=== PATIENT | male | born 1960 | race Caucasian/White ===

== ENCOUNTER 2016-11-09 11:30 | Inpatient (IN) ==
[2016-11-09] MEDS ORDERED: DILAUDID IM ONE (12:19)
[2016-11-09] MEDS ORDERED: PHENERGAN IM ONE (12:20)
--- NOTE | 2016-11-09 13:20 | Diag Imaging Result Document ---
PROCEDURE NAME: CHEST-2 VIEWS - 11/09/2016 FRONTAL AND LATERAL CHEST, 2 VIEWS: FINDINGS: There is a small to moderate sized right-sided hydropneumothorax. No lung contusion. The mediastinum is not widened. The left lung is clear. The heart is not enlarged. IMPRESSION: Small to moderate sized right-sided hydropneumothorax. Dr. Hirsch was called in the emergency room at 1:05 p.m.
--- NOTE | 2016-11-09 13:20 | Diag Imaging Result Document ---
PROCEDURE NAME: RIBS ONLY RIGHT - 11/09/2016 RIGHT RIB DETAIL, FOUR VIEWS: COMPARISON: Comparison is made to the recent chest x-ray. FINDINGS: There is a right-sided hydropneumothorax. This is [id number] in size. No displaced fracture. No lung contusion. The mediastinum is not widened. IMPRESSION: Right-sided hydropneumothorax. Dr. Hirsch was called in the Emergency Room at 1:05 p.m..
--- NOTE | 2016-11-09 14:17 | Diag Imaging Result Document ---
PROCEDURE NAME: CT THORAX W/O CONTRAST - 11/09/2016 CT THORAX WITHOUT CONTRAST: A CT dose reduction protocol was used. COMPARISON: CT thoracic spine 11/07/2016. FINDINGS: There is a right posterior lateral 6th rib fracture that is nondisplaced, apparently stable from the thoracic spine CT. There is enlargement of the right-sided pneumothorax, this now measures about 40%. There is fluid opacification of all of the right lower lobe airways and collapse of this lobe. The interim lobar bronchus is also opacified, with partial opacification of the right middle lobe airways. The right middle and lower lobes are completely collapsed. There is a small right pleural effusion which may be a hemothorax. IMPRESSION: 1. Right pneumothorax of about 40%. 2. Small right hemothorax. 3. Opacification of all the lower and middle lobe bronchi on the right with complete collapse of these lobes. [facility]
--- NOTE | 2016-11-09 15:22 | PROVIDER DOCUMENTATION ---
This chart was entered by Saman Campos Scribe, acting as scribe for Katiana Hirsch MD. HPI-General Adult - General Chief Complaint: Chest Pain Stated Complaint: FRACTURED RIBS Time Seen by Provider: 11/09/16 12:09 Source: patient Allergies/Adverse Reactions: Patient Allergies Allergy/AdvReac Type Severity Reaction Status Date / Time promethazine HCl * Allergy NAUSEA Verified 11/09/16 13:08 [From Phenergan] tetracycline Allergy Unknown Verified 11/09/16 13:08 Home Medications: Home Medication List Medication Instructions Recorded Confirmed Last Taken Type NK [No Home Medications] 11/09/16 11/09/16 Unknown History - History of Present Illness -Gen Adult Nature of Presenting Problems: pt is 56 y/o M that presents to the ER with right side pain due to right rib fx 's and possible worsening pneumothorax. Patient was [place] [facility] [place] has pain meds but wants to make sure he doesn't have a worsening pneumothorax . Location of Pain/Injury: reports: chest (right ribs) Pain Radiation: reports: no radiation Quality of Pain: reports: sharp Severity: reports: moderate Onset/Duration: reports: abrupt, 3 days ago Timing: reports: still present, constant Context/Activities at Onset: reports: recent trauma history Modifying Factors: worse with: breathing, movement, palpation Associated Symptoms: reports: chest pain, shortness of breath, pain with inspiration. denies: diarrhea, fever/chills, genitourinary problems, sinus congestion/drainage, nausea, vomiting Similar Symptoms Previously?: Yes Recently seen or treated by another doctor?: Yes Review of Systems - Adult - REVIEW OF SYSTEMS - ADULT Constitutional: denies: chills, fever Eyes: reports: no symptoms reported Ears, Nose, Mouth & Throat: reports: no symptoms reported Cardiovascular: reports: chest pain. denies: palpitations, syncope Respiratory: reports: pleurisy, shortness of breath. denies: cough, wheezing Gastrointestinal: reports: no symptoms reported Genitourinary: reports: no symptoms reported Musculoskeletal: reports: no symptoms reported Integumentary: reports: no symptoms reported Neurological: reports: no symptoms reported Psychiatric: reports: no symptoms reported Endocrine: reports: no symptoms reported Hematologic/Lymphatic: reports: no symptoms reported Allergic/Immunologic: reports: no symptoms reported All Other Systems: Reviewed and Negative Past History - Adult - PAST MEDICAL HISTORY-ADULT Review of Records: reports: Old Records Reviewed, Nursing Assessment Review, Medications Reviewed Respiratory: reports: COPD - IMMUNIZATION STATUS Childhood Immunizations: See Nurse Assessment Flu Vaccine: See Nurse Assessment - FAMILY HISTORY Family History: reviewed, not pertinent - SOCIAL HISTORY Smoking: cigarettes, less than 1 pack/day Living Situation: family Physical Exam-General - PHYSICAL EXAM-ADULT Initial Vital Signs Reviewed: Yes - CONSTITUTIONAL General Appearance: alert, no apparent distress - EYES Eyes: PERRL/EOMI, pink conjunctivae - HEAD, EARS, NOSE, MOUTH & THROAT HENMT: normocephalic/atraumatic, moist mucous membranes, normal ENT inspection - NECK Neck: full range of motion, normal inspection - RESPIRATORY Respiratory: lungs clear, normal breath sounds, no respiratory distress, no accessory muscle use, pain on inspiration - CARDIOVASCULAR Cardiovascular: regular rate, rhythm, no edema, no murmur - GASTROINTESTINAL (ABDOMEN) Abdominal Exam: normal bowel sounds, non tender, soft - MUSCULOSKELETAL Extremity: normal range of motion, normal inspection, no pedal edema - SKIN Integumentary: normal color, warm/dry - NEUROLOGIC Neurologic: grossly normal, no motor/sensory deficits - PSYCHIATRIC Psych/Mental Status: normal mood/affect, normal thought content, normal thought process, oriented x 3 Progress - PLAN OF CARE/RESULTS Progress/Plan/Lab Results: Vital Signs - 8 hr 11/09/16 11:57 Temperature 98 F Pulse Rate 70 Respiratory Rate 14 Blood Pressure 124/88 O2 Sat by Pulse Oximetry 100 Orders Category Date Time Status RIBS UNILAT W/PA CHEST RIGHT [RAD] Stat Exams 11/09/16 12:16 Ordered cxr [CHEST-2 VIEWS] [RAD] Stat Exams 11/09/16 12:16 Ordered Hydromorphone [Dilaudid] Med 11/09/16 12:19 Discontinued 2 mg IM NOW ONE Promethazine [Phenergan] Med 11/09/16 12:20 Discontinued 12.5 mg IM NOW ONE - XRAY 1 XRAY Study: Chest, Ribs Impression: Abnormal XRAY Interpretation: 25 to 30% pneumothorax - CT/MRI 1 CT Study: Thorax Impression: Abnormal CT Results: R 6th Rib Fx, 40% R Pneumo plugging RML and RLL bronchi collapsed - CONSULTS/PCP/HOSPITALIST Notification #1 *Consult/PCP/Hospitalist*: Dr.T Leong Time Discussed: 13:12 Reason/Comments: CT scan chest non-contrast Consult Disposition: Will see in ED #2 Consult: Dr.T Leong Time Discussed: 14:40 Reason/Comments: will place chest tube in ER Consult Disposition: Will see in ED, Admit Departure - Departure Time of Disposition Decision: 14:41 DIAGNOSIS: Pneumothorax, right Rib fracture Qualifiers: Encounter type: initial encounter Rib fracture type: single rib Fracture type: closed Laterality: right Qualified Code(s): S22.31XA - Fracture of one rib, right side, initial encounter for closed fracture Disposition: ADMITTED INPATIENT 09 Certified Medical Emergency: Emergent Condition: Stable Referrals and Follow-Ups: None,PCP [Primary Care Provider] - This chart was documented by the indicated scribe, (Saman Campos, Scribe) and accurately reflects the services I performed and decisions made by me, Katiana Hirsch MD, as attested by the provider's signature.
[2016-11-09] MEDS ORDERED: XYLOCAINE 1%/EPI 1:100,000 ONE (16:43)
[2016-11-09] MEDS ORDERED: DILAUDID IV ONE (17:28)
[2016-11-09] MEDS ORDERED: ZOFRAN IV PRN (17:33)
[2016-11-09] MEDS ORDERED: NS 1,000 ML IV ONE (17:33)
[2016-11-09] MEDS ORDERED: TYLENOL PO PRN (17:33)
[2016-11-09] MEDS ORDERED: DILAUDID IV PRN (17:33)
[2016-11-09] MEDS: DILAUDID IV PRN (23:42)
[2016-11-09] MEDS: NICODERM PATCH TD SCH ×2 (23:51→23:55)
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
[2016-11-10] MEDS: DILAUDID IV PRN ×4 (04:18→20:30)
--- NOTE | 2016-11-10 04:19 | OPERATIVE NOTE ---
PROCEDURE DATE: 11/09/2016 PREOPERATIVE DIAGNOSIS: Right pneumothorax. POSTOPERATIVE DIAGNOSIS: Right pneumothorax. PROCEDURES PERFORMED: Right-sided tube thoracostomy with a 32-[place] chest tube. ESTIMATED BLOOD LOSS: Less than 5 mL. SPECIMENS: None. COMPLICATIONS: None. ANESTHESIA: Local. INDICATION: A 56-year-old male with a symptomatic right pneumothorax after a fall several days ago. He has COPD. OPERATIVE FINDINGS: There is a parrish of air upon entering the chest cavity but no significant pleural adhesions. OPERATIVE NOTE: Risks, benefits, alternatives discussed with the patient. He consented to the procedure and surgery being performed was confirmed. Surgical site was marked. Time-out was performed between nursing and surgery staff. Sterile gloves and gown for this procedure as well. Right chest was prepped with chlorhexidine solution and draped with sterile towels. His right arm was secured with silk tape above his head. At approximately the 6th intercostal space, we infiltrated local anesthetic to level of the rib, accessed the pleural cavity and aspirated air and infiltration of the pleura. Made an incision transversely below the level of the riband dissected cephalad over the top of the rib bluntly, entering the chest cavity in a controlled fashion. Swept away with my finger to make sure there were no adhesions After confirming there were no intra-thoracic adhesions, a 32-[place] chest tube was placed posterior and apically and secured to a Pleur-Evac device. Secured this with 0 silk sutures in 1/2-hitch fashion. A sterile dressing was applied. Placed a suction. Some serosanguineous fluid was expressed. There was no air leak noted. It was placed to -20 suction. Chest x -ray was pending. He tolerated the procedure well. There were no identified complications. cc: Erika Leong MD [facility]
--- NOTE | 2016-11-10 05:10 | HISTORY AND PHYSICAL ---
CHIEF COMPLAINT: Shortness of breath. HISTORY OF PRESENTING ILLNESS: This is a 56-year-old male with a history of COPD, hepatitis C, liver cancer, who apparently fell on a pallet on Wednesday or so and at that time, he went to [facility] where he was diagnosed with rib fracture and sent home. He states that when he went home, he started developing more shortness of breath and more pain and subsequently had returned to [facility], where he had imaging done which did show that he had a right pneumothorax. Subsequently, General Surgery was called. A chest tube was placed and patient will need hospitalization for further management. At the time of my examination, he had denied any headache, visual changes, fevers, chills, hemoptysis, melena, weight changes. States he feels a little bit better. PAST MEDICAL HISTORY: Includes COPD/emphysema, liver cancer, hepatitis C. PAST SURGICAL HISTORY: Appendectomy, liver tumor removal. ALLERGIES: Tetracycline and Phenergan. CURRENT MEDICATIONS: As listed in the MAR. SOCIAL HISTORY: Fifty pack years history of smoking. Denies history of alcohol use. History of marijuana use that he states he has a prescription for. He has a history of IV drug use including IV heroin, methamphetamines and cocaine. FAMILY HISTORY: Positive for coronary disease in mother. REVIEW OF SYSTEMS: Twelve point review of systems is as in HPI. Other systems negative. PHYSICAL EXAMINATION: GENERAL: Cooperative, friendly male. He is resting comfortably now. VITAL SIGNS: Temperature 98.2 degrees, pulse 66, respirations 20, blood pressure 159/75. HEENT: Atraumatic, normocephalic. Extraocular movements intact. PERRLA. NECK: Supple. CHEST: There is a chest tube in place. CARDIOVASCULAR: Regular rate and rhythm. ABDOMEN: Soft. Positive bowel sounds. EXTREMITIES: No edema. NEURO: He is awake, alert, oriented x3. : No bladder distention. SKIN: Warm. LABORATORIES AND STUDIES: All pending. ASSESSMENT: A 56-year-old male with a history of chronic obstructive pulmonary disease, apparently had fell on a pallet 2 days ago. He had a rib fracture and then subsequently began to become more dyspneic. He was evaluated in the emergency room at [facility] where he was found to have a pneumothorax. Chest tube was placed and he will need hospitalization for further management. 1. Right pneumothorax. 2. Chronic obstructive pulmonary disease. 3. Right 6th rib fracture. 4. Ongoing tobacco abuse. PLAN: 1. The patient will be admitted to the medical floor with telemetry. 2. General Surgery following and managing chest tube. 3. We will give patient adequate pain control and his DuoNebs p.r.n. 4. Counseled patient extensively on smoking cessation and put a nicotine patch on patient. 5. Put patient on DVT prophylaxis with SCD. 6. We will continue to follow and reassess. cc: Konstantin Garcia MD
[2016-11-10 06:08] LABS: MANUAL DIFF NEEDED? NO
[2016-11-10 06:12] LABS: BASO% 0.1 % (0.0-0.8); EOS# 0.11 X1000 (0.0-0.7); EOS% 1.1 % (0.0-10.0); HEMATOCRIT 38.3 % (42.0-52.0); HEMOGLOBIN 12.9 g/dL (14.0-18.0); IMM GRAN# 0.02 X1000 (0.0-0.04); IMM GRAN% 0.2 % (0.0-0.5); LYMPH# 0.91 X1000 (1.2-3.4); LYMPH% 9.5 % (20.5-51.1); MCH 30.6 PG (27-31); MCHC 33.7 g/dL (33-37); MCV 90.8 FL (81-99); MONO# 0.96 X1000 (0.11-0.59); MPV 10.4 FL (7.4-10.4); NEUT% 79.1 % (42.2-75.2); PLT 236 X1000 (130-400); RBC 4.22 XMIL (4.7-6.1)
[2016-11-10 06:29] LABS: AGAP 13; BUN 12 mg/dL (8-22); CALCIUM 8.5 mg/dL (8.8-10.2); CHLORIDE 99 mmol/L (98-107); COSMO 272; POTASSIUM 4.1 mmol/L (3.5-5.1); SODIUM 136 mmol/L (136-145); TCO2 24 mmol/L (25-35)
--- NOTE | 2016-11-10 08:12 | Diag Imaging Result Document ---
PROCEDURE NAME: CHEST-PORTABLE - 11/10/2016 PORTABLE CHEST X-RAY: COMPARISON: 11/09/2016. FINDINGS: Stable right chest tube. Stable trace right apical pneumothorax. Stable infiltrate versus collapse at the right lung base. IMPRESSION: No complication or change from prior.
--- NOTE | 2016-11-10 08:13 | Diag Imaging Result Document ---
PROCEDURE NAME: CHEST-PORTABLE - 11/09/2016 PORTABLE CHEST X-RAY AT 1835 HOURS: COMPARISON: 1228 hours. FINDINGS: There has been placement of a right-sided chest tube in good position. There is near- complete resolution of the right pneumothorax with a tiny trace residual apical pneumothorax. There has been some improvement in the collapse at the right lung base as well. IMPRESSION: Significant improvement from prior. No complication.
--- NOTE | 2016-11-10 12:46 | PROGRESS NOTE ---
DATE: 11/10/2016 SUBJECTIVE: Feels well. Some pain at the tube site. Productive cough. Not dissimilar from baseline. OBJECTIVE: Afebrile overnight. No tachycardia. Pulse 75, blood pressure 122/77, oxygen saturation 92% on room air. General: He is alert in no acute distress. Cardiovascular: Normal rate. Regular rhythm. Pulmonary: No increased work of breathing. Equal chest rise. Right chest tube with less than 200 mL of serosanguineous drainage. No air leak. He is to -20 suction. Chest tube dressing with minimal drainage on this. I reviewed his labs. White count is normal at 9, hematocrit 38, creatinine 0.8, glucose is normal at 95. Chest x-ray shows good expansion of the right lung. Questionable apical pneumothorax, but I suspect this is more bleb noted on CT scan and some atelectasis but no real effusion. ASSESSMENT AND PLAN: A 56-year-old male with a traumatic right pneumothorax, status post chest tube placement. Lungs well expanded on x-ray today with no air leak. We have water sealed his tube. Repeat chest x-ray this afternoon and a chest x-ray in the morning for plan for possible removal. I appreciate the hospitalist's help with this gentleman. He has never really been followed by a medicine doctor and has multiple chronic issues that are not being managed. They are also making arrangements for him as an outpatient. I discussed the importance of pulmonary toileting, ambulating, and pain control. We will work on this today. cc: Erika Leong MD
--- NOTE | 2016-11-10 15:38 | Diag Imaging Result Document ---
PROCEDURE NAME: CHEST-PORTABLE - 11/10/2016 SINGLE FRONTAL RADIOGRAPH OF THE CHEST: COMPARISON: 11/10/2016. FINDINGS: Right chest tube is in stable position. There is a stable tiny pneumothorax at the right lung apex. Infiltrate versus atelectasis at the right lung base is stable. No new consolidation identified. Cardiac silhouette is stable. IMPRESSION: Stable chest.
--- NOTE | 2016-11-10 16:58 | PROGRESS NOTE ---
DATE: 11/10/2016 SUBJECTIVE: Today Mr. Baig referred to be doing a little better. He just came from follow-up chest x-ray this afternoon. OBJECTIVE: Vital signs: Blood pressure is 152/78, pulse of 87, respiration is 20, temperature is 99.2 degrees. General: Mr. Baig is a 56-year-old, male. He was in bed. He did not seem to be in any distress. HEENT: Mucosa is pink and moist. Anicteric. Acyanotic. Neck: Supple. Chest: Good air entry bilateral. A few bibasilar crepitations. There is a chest tube in the right lateral chest wall. Cardiovascular: Regular rate and rhythm. There are no murmurs, no rubs, no gallop. Abdomen: Soft. Extremities: No pedal edema. LABORATORY DATA: WBC is 9.57, hemoglobin is 12.7, platelet count is 236,000. Chemistries reviewed, completely unremarkable except for calcium which is 8.2. IMAGING: A chest x-ray this afternoon shows tiny stable pneumothorax on the right, infiltrate versus atelectasis at the right lung base, stable. ASSESSMENT: 1. Right traumatic hydropneumothorax status post right chest tube placement. The patient is doing fine, being followed up by General Surgery. 2. Chronic obstructive pulmonary disease. Stable. 3. Tobacco abuse. Patient has been counseled. 4. Right 6th rib fracture. 5. Strep hepatitis C. cc: Ricki Linn MD
[2016-11-11] MEDS: DILAUDID IV PRN ×5 (02:03→21:45)
[2016-11-11] MEDS: NICODERM PATCH TD SCH (09:57)
--- NOTE | 2016-11-11 14:31 | Diag Imaging Result Document ---
PROCEDURE NAME: CHEST-PORTABLE - 11/11/2016 PORTABLE UPRIGHT CHEST: COMPARISON: Compared to 11/10/2016. FINDINGS: There is persistence of the right lower lobe infiltrate. No interval improvement. In fact, it may be slightly more pronounced. Development of atelectasis versus a small infiltrate in the left base. Heart is not enlarged. The vessels are not distended. There is a right-sided chest tube. No pneumothorax identified. IMPRESSION: No interval improvement.
--- NOTE | 2016-11-11 15:55 | PROGRESS NOTE ---
DATE: 11/11/2016 SUBJECTIVE: Today Mr. Baig referred to be doing fine. He continues to have a chest tube in place. According to him, when he is taking deep breaths he gets this chest pain lodging in the center of his chest, then it would immediately go away. OBJECTIVE: Vitals: Blood pressure is 119/75, pulse is 90, respiration is 18, temperature is 98.6 degrees. General Exam: Mr. Baig is a 56-year-old male. He was in bed. He did not seem to be in any distress. HEENT: Mucosa is pink and moist. Anicteric. Acyanotic. Neck: Supple. Chest: Air entry is bilaterally reduced. A few bibasilar crepitations. There is a chest tube in the right lateral chest wall. Cardiovascular: Regular rate and rhythm. No murmurs, no rubs. No gallops. Abdomen: Soft, nontender. Extremities: No pedal edema. LABORATORY DATA: None for today. DIAGNOSTIC DATA: A chest x-ray this morning did show no interval improvement. There might be some slight worsening of the right lower lobe infiltrate. ASSESSMENT: 1. Traumatic right hydro pneumothorax status post right chest tube placement. The pneumothorax seems to have resolved but there is persistent infiltrate in the right lower base which I think is part of the hydrothorax. Will be pending Surgery evaluation today as to when the tube can be safely removed. 2. Chronic obstructive pulmonary disease, not in exacerbation. 3. Tobacco abuse. 4. Right 6th rib fracture. 5. Hepatitis C. So in general, I think Mr. Baig is doing relatively stable. We will continue with the pain management, also incentive spirometer, and will be pending further recommendations from Surgery. We did discuss about Mr. Baig at [facility] today. There is the plan to get him physicians who would be willing to take him to follow up with his other comorbidities once he gets discharged from the hospital. cc: MD YARON oHllis
--- NOTE | 2016-11-11 16:29 | PROGRESS NOTE ---
DATE: 11/11/2016 SUBJECTIVE: Pain at the insertion site of his tube. Productive cough but no shortness of breath. OBJECTIVE: Afebrile. Temperature is 98.6 degrees, pulse is 90, blood pressure 119/75, oxygen saturation 97% on room air.General: He is alert, in no acute distress. HEENT: There is some temporal wasting. Cardiovascular: Normal rate, regular rhythm. Pulmonary: He is on room air with no increased work of breathing. His right chest tube site has some serosanguineous drainage around the tube but it is otherwise without erythema. His chest tube is to water seal without an air leak and some serosanguineous drainage but only a moderate amount. Labs reviewed. Nothing new this morning. Chest x-ray reviewed. After water seal yesterday there is no residual pneumothorax. There is some atelectasis right lower lobe. This morning's x-ray shows again no reaccumulation of pneumothorax. ASSESSMENT/PLAN: 56-year-old male with traumatic right pneumothorax status post chest tube placed and he had rapid re-expansion of his lung with no residual air leak or pneumothorax noted on his x- ray and exam today. We will remove his tube and check a chest x-ray following. I removed the tube and placed an occlusive dressing which needs to stay for 72 hours given his thin stature and lack of subcutaneous tissue. Discussed with the patient if his x-ray looks okay this evening, it will be okay for him to go home in the morning. Appreciate the hospitalist's help with this patient. cc: Erika Leong MD
[2016-11-12] MEDS: DILAUDID IV PRN ×2 (03:49→08:33)
[2016-11-12 07:40] VITALS: BP 117/79
--- NOTE | 2016-11-12 09:02 | Diag Imaging Result Document ---
PROCEDURE NAME: CHEST-1 VIEW - 11/12/2016 PORTABLE CHEST: Compared with 11/11/2016. FINDINGS: Heart size is normal. There has been interval decrease in infiltrate at the right base. There is mild residual infiltrate at the right base. The remainder of the lungs appear clear. There is no pleural effusion identified. There is a questionable tiny pneumothorax at the superior lateral right chest. IMPRESSION: 1. Interval decrease in right basilar infiltrate. 2. Questionable tiny pneumothorax at the superior lateral right chest.
--- NOTE | 2016-11-12 09:43 | Diag Imaging Result Document ---
PROCEDURE NAME: CHEST-PORTABLE - 11/11/2016 SINGLE FRONTAL RADIOGRAPH OF THE CHEST: COMPARISON: 11/11/2016. FINDINGS: The infiltrate at the right lung base is essentially unchanged. The very mild opacity at the left lung base that more than likely represents mild atelectasis is also unchanged. No new consolidation is identified. Cardiac silhouette is stable. IMPRESSION: Stable chest.
--- NOTE | 2016-11-12 11:49 | PROGRESS NOTE ---
DATE: 11/12/2016 SUBJECTIVE: Feels well. Pain in his right chest has resolved. No shortness of breath. Not requiring oxygen. OBJECTIVE: Vital Signs: Temperature is 98 degrees, pulse is 82, blood pressure 117/79, oxygen saturation 98% on room air. General: He is alert, in no acute distress. HEENT: No scleral icterus. Some temporal wasting. Cardiovascular: Normal rate, regular rhythm. Pulmonary: Right chest tube removal. Dressing is clean, dry, and intact. I do not see any subcutaneous air. Equal chest rise. Integument: Otherwise warm and dry. LABS: Nothing new this morning. X-RAYS: Chest x-ray shows resolution of right pneumothorax with no reaccumulation after chest tube removal and improvement in the right lower lobe atelectasis. ASSESSMENT/PLAN: A 56-year-old male with a traumatic right pneumothorax; this is resolved. He is doing very well clinically. It will be okay for him to discharge home. I would like to see him back in the next 1 to 2 weeks in my office. We will repeat a chest x-ray at that time. I have given them my office address, and they are familiar with the office and will call and schedule this. cc: Erika Leong MD
--- NOTE | 2016-11-13 08:50 | DISCHARGE SUMMARY ---
ADMISSION DATE: 11/09/2016 DISCHARGE DATE: 11/12/2016 PERTINENT PROCEDURES: 1. Rib x-ray showed right-sided hydropneumothorax. 2. Chest CT showed right pneumothorax of about 40%, small right hemothorax, opacifications of the lower and middle lobe bronchi on the right with complete collapse of these lobes. 3. Placement of a right-sided chest tube performed by Dr. Hung Leong. CONSULTATIONS: Dr. Hung Leong. DISCHARGE DIAGNOSES: 1. Traumatic right hydropneumothorax, status post right chest tube placement. Chest tube was discontinued on 11/11/2016. Follow up chest x-ray showed interval decrease in right basilar infiltrate and questionable tiny pneumothorax at the superior lateral right chest. 2. Chronic obstructive pulmonary disease without exacerbation. 3. Tobacco abuse. Patient educated on daily smoking cessation, as well as the means to quit. 4. Right sixth rib fracture. 5. Hepatitis C. HOSPITAL COURSE: Briefly, Mr. Kat is a 56-year-old male with a history of COPD, hepatitis C, and liver cancer who fell on the palate on Wednesday. He went to [facility], where he was diagnosed with a rib fracture and sent home. He states that when he went home, he started developing more shortness of breath and more pain. He returned to [facility] room, where he had imaging done that did show a right-sided pneumothorax and General Surgery was consulted. A chest tube was placed and the patient was hospitalized for further management. He was started on adequate pain control, as well as bronchodilators, and aggressive pulmonary toilet. He was educated and counseled extensively on smoking cessation, as well as the means to quit. The patient's chest tube was discontinued on 11/11/2016. He was doing very well clinically, and Dr. Leong would like to see him back in the office in next 1-2 weeks, with a repeat chest x-ray. DISCHARGE VITAL SIGNS: Temperature was 98 degrees, heart rate 82, respirations 16, blood pressure is 117/79, O2 is 98% on room air. DISCHARGE DIET: Regular. DISCHARGE MEDICATION: None. FOLLOWUP: Patient is being discharged home. He will follow up with Dr. Hung Leong on 11/19/2016, at 14:00. He will also need to obtain a primary care physician, but the patient stated he does not need a primary care physician. He was advised and counseled again of smoking cessation, as well as the means to quit. He has no desire to quit and he would like to be left alone. The patient again can return to the ED for any worsening of symptoms. DISCHARGE TIME: 30 minutes. Dictated by RICCI Peralta for Ricki Linn MD cc: Ricki Linn MD
== END 2016-11-12 09:24 | disposition home or self-care (01) ==
LOC: ED 11:30 → 4N 18:40 → SUATTDRO 18:40
PROVIDERS: ATTEND Internal Medicine